=== PATIENT | male | born 1985 ===

== ENCOUNTER 2017-06-03 22:22 | Emergency (ER) | payer MEDICARE, MEDICAID ==
[2017-06-03 22:22] VITALS: BMI 27.6
[2017-06-03 22:43] VITALS: TEMP 98; O2SAT 97
[2017-06-03 23:59] LABS: BASO # 0.1 K/uL (0.0-0.2); BASO % 0.7 % (0.0-2.0); EOS # 0.2 K/uL (0.0-0.7); EOS % 2.2 % (0.0-4.0); HEMOGLOBIN 14.6 g/dL (12.0-18.0); LYMPH # 3.4 K/uL (1.0-4.3); LYMPH % 43.5 % (20.0-40.0); MEAN CELL VOLUME 86.2 fL (80.0-94.0); MEAN CORPUSCULAR HEMOGLOBIN 30.8 pg (27.0-31.0); MEAN CORPUSCULAR HGB CONC 35.7 g/dL (33.0-37.0); MEAN PLATELET VOLUME 8.8 fL (7.2-11.7); MONO # 0.5 K/uL (0.0-0.8); MONO % 6.9 % (0.0-10.0); NEUT # 3.7 K/uL (1.8-7.0); NEUT % 46.7 % (50.0-75.0); RBC 4.74 Mil/uL (4.40-5.90); RED CELL DISTRIBUTION WIDTH 13.6 % (11.5-14.5); WHITE BLOOD COUNT 7.8 K/uL (4.8-10.8)
[2017-06-04 00:14] LABS: ALB/GLOB RATIO 1.2 (1.0-2.1); ALT/SGPT 34 U/L (21-72); AST/SGOT 27 U/L (17-59); BLOOD UREA NITROGEN 16 mg/dL (9-20); CALCIUM 8.9 mg/dl (8.6-10.4); GFR AFRICAN-AMERICAN > 60; GFR NON-AFRICAN AMERICAN > 60
--- NOTE | 2017-06-04 00:31 | C.PDOC ---
History Of Present Illness 31 years old male presents to ED with complaints of chest pain that began after reaching for something earlier today. Denies SOB, cough, fever, or cardiac Hx. Patient states pain increases with movement. Chief Complaint (Nursing): Chest Pain History Per: Patient History/Exam Limitations: no limitations Onset/Duration Of Symptoms: Hrs Current Symptoms Are (Timing): Still Present Quality: "Pain" Associated Symptoms: denies: Nausea, Dyspnea Modifying Factors: None Exacerbating Factors: Movement Alleviating Factors: None Recent travel outside of the [place]: No Past Medical History Reviewed: Historical Data, Nursing Documentation, Vital Signs Vital Signs: Last Vital Signs Temp 98 F 06/03/17 22:37 Pulse 77 06/04/17 00:46 Resp 16 06/04/17 00:46 BP 113/76 06/04/17 00:46 Pulse Ox 97 06/04/17 00:46 - Medical History PMH: No Chronic Diseases Surgical History: No Surg Hx Family History: States: Unknown Family Hx - Social History Hx Tobacco Use: No Hx Alcohol Use: Yes Hx Substance Use: No (Cocaine) - Immunization History Hx Tetanus Toxoid Vaccination: No Hx Influenza Vaccination: No Hx Pneumococcal Vaccination: No Review Of Systems Constitutional: Negative for: Fever, Chills Cardiovascular: Positive for: Chest Pain. Negative for: Palpitations Respiratory: Negative for: Cough, Shortness of Breath Gastrointestinal: Negative for: Nausea, Vomiting, Abdominal Pain, Diarrhea Skin: Negative for: Rash Neurological: Negative for: Weakness, Numbness Physical Exam - Physical Exam Appears: Well, Non-toxic, No Acute Distress Skin: Normal Color, Warm, Dry Head: Atraumatic, Normacephalic Eye(s): bilateral: Normal Inspection Oral Mucosa: Moist Neck: Supple Chest: Symmetrical, No Tenderness Cardiovascular: Rhythm Regular, No Murmur Respiratory: Normal Breath Sounds, No Decreased Breath Sounds, No Rales, No Rhonchi, No Wheezing Gastrointestinal/Abdominal: Soft, No Tenderness, No Distention Extremity: Normal ROM, No Tenderness, No Pedal Edema, No Deformity, No Swelling Extremity: Bilateral: Normal Color And Temperature, Normal ROM Neurological/Psych: Oriented x3, Normal Speech, Normal Cognition, Other (no focal deficits) ED Course And Treatment - Laboratory Results Result Diagrams: 06/03/17 23:51 06/03/17 23:51 O2 Sat by Pulse Oximetry: 97 (RA) Pulse Ox Interpretation: Normal Medical Decision Making Medical Decision Making: Ordered EKG, CXR and blood work. EKG Results: - Normal sinus rhythm at 71 bpm. Disposition - Disposition Referrals: Ariadna Khanna, [Non-Staff] - Disposition: HOME/ ROUTINE Disposition Time: 00:50 Condition: GOOD Additional Instructions: Thank you for letting us take care of you today. The emergency medical care you received today was directed at your acute symptoms. If you were prescribed any medication, please fill it and take as directed. It may take several days for your symptoms to resolve. Return to the Emergency Department if your symptoms worsen, do not improve, or if you have any other problems. Please contact your doctor or call one of the physicians/clinics you have been referred to that are listed on the Patient Visit Information form that is included in your discharge packet. Bring any paperwork you were given at discharge with you along with any medications you are taking to your follow up visit. Our treatment cannot replace ongoing medical care by a primary care provider (PCP) outside of the emergency department. Thank you for allowing the [facility] team to be part of your care today. Follow up with your doctor for re-evaluation and further management. Prescriptions: Ibuprofen [Motrin] 600 mg PO Q6 PRN #20 tab PRN Reason: Pain, Moderate (4-7) Instructions: Chest Pain That Is Not Caused by the Heart (DC) Forms: [employer] (Tajik) - Clinical Impression Clinical Impression: Non-cardiac chest pain - Scribe Statement The provider has reviewed the documentation as recorded by the Scribsharee Gold All medical record entries made by the Scribe were at my direction and personally dictated by me. I have reviewed the chart and agree that the record accurately reflects my personal performance of the history, physical exam, medical decision making, and the department course for this patient. I have also personally directed, reviewed, and agree with the discharge instructions and disposition.
[2017-06-04 00:47] VITALS: BP 113/76; PULSE 77; RESP 16
--- NOTE | 2017-06-04 11:37 | RAD ---
PROCEDURE: CHEST RADIOGRAPH, 1 VIEW HISTORY: chest pain COMPARISON: Comparison is made to 12/12/2015 FINDINGS: LUNGS: No evidence of new infiltrate or consolidation in the lungs. PLEURA: No pneumothorax or pleural fluid seen. CARDIOVASCULAR: Normal. OSSEOUS STRUCTURES: No significant abnormalities. VISUALIZED UPPER ABDOMEN: Normal. OTHER FINDINGS: None. IMPRESSION: No active disease.
--- NOTE | 2017-06-06 20:35 | CARD ---
APPROVED REPORT EKG Measurement Heart [id number] <Conclusion> Normal sinus rhythm with sinus arrhythmia Normal ECG
== END 2017-06-04 01:05 | disposition home or self-care (01) ==
LOC: C.ER 22:22
DX: R07.89 Other chest pain (principal)

== ENCOUNTER 2017-10-13 11:49 | Emergency (ER) | payer MEDICARE, MEDICAID ==
[2017-10-13 12:03] VITALS: BMI 26.4
[2017-10-13 12:05] VITALS: RESP 16
[2017-10-13] MEDS ORDERED: Sodium Chloride 0.9% 1,000 ML IV ONE (12:09)
--- NOTE | 2017-10-13 12:25 | RAD ---
HISTORY: chest pain COMPARISON: Chest x-ray performed 06/03/17 TECHNIQUE: Chest, one view. FINDINGS: LUNGS: No focal consolidation. Please note that chest x-ray has limited sensitivity for the detection of pulmonary masses. PLEURA: No significant pleural effusion identified. No definite pneumothorax . CARDIOVASCULAR: The cardiomediastinal silhouette appears within normal limits of size. OSSEOUS STRUCTURES: No acute osseous abnormality identified. VISUALIZED UPPER ABDOMEN: Unremarkable. OTHER FINDINGS: None. IMPRESSION: No focal consolidation, significant pleural effusion, or definite pneumothorax identified.
[2017-10-13 12:42] LABS: BASO % 0.7 % (0.0-2.0); EOS # 0.1 K/uL (0.0-0.7); EOS % 1.5 % (0.0-4.0); HEMOGLOBIN 15.2 g/dL (12.0-18.0); LYMPH # 2.2 K/uL (1.0-4.3); LYMPH % 36.7 % (20.0-40.0); MEAN CELL VOLUME 86.1 fL (80.0-94.0); MEAN CORPUSCULAR HEMOGLOBIN 30.4 pg (27.0-31.0); MEAN CORPUSCULAR HGB CONC 35.3 g/dL (33.0-37.0); MEAN PLATELET VOLUME 8.7 fL (7.2-11.7); MONO # 0.4 K/uL (0.0-0.8); MONO % 7.4 % (0.0-10.0); NEUT # 3.2 K/uL (1.8-7.0); NEUT % 53.7 % (50.0-75.0); RBC 5.02 Mil/uL (4.40-5.90); RED CELL DISTRIBUTION WIDTH 13.5 % (11.5-14.5); WHITE BLOOD COUNT 5.9 K/uL (4.8-10.8)
[2017-10-13 13:01] LABS: ALB/GLOB RATIO 1.4 (1.0-2.1); ALBUMIN 4.5 g/dL (3.5-5.0); ALT/SGPT 39 U/L (21-72); AST/SGOT 25 U/L (17-59); BLOOD UREA NITROGEN 14 mg/dL (9-20); CALCIUM 9.3 mg/dl (8.6-10.4); GFR NON-AFRICAN AMERICAN > 60
[2017-10-13] MEDS ORDERED: Sodium Chloride 0.9% 1,000 ML ONE (13:09)
[2017-10-13 13:12] LABS: BARBITURATES, UR NEGATIVE (NEGATIVE); BENZODIAZEPINES, UR NEGATIVE (NEGATIVE); OPIATES, UR NEGATIVE (NEGATIVE); PHENCYCLIDINE, UR NEGATIVE (NEGATIVE)
[2017-10-13 13:41] VITALS: BP 115/80; PULSE 85; TEMP 98.7; O2SAT 98
--- NOTE | 2017-10-13 14:40 | C.PDOC ---
History Of Present Illness 32 y/o male presents to the ED complaining of epigastric pain for several days. He reports the pain worsens with PO intake. The patient admits to experiencing this pain in the past but never sought out evaluation. He denies any SOB, fever or cough. Time Seen by Provider: 10/13/17 12:06 Chief Complaint (Nursing): Chest Pain History Per: Patient History/Exam Limitations: no limitations Onset/Duration Of Symptoms: Days Current Symptoms Are (Timing): Still Present Exacerbating Factors: Other (PO intake) Recent travel outside of the [place]: No Past Medical History Reviewed: Historical Data, Nursing Documentation, Vital Signs Vital Signs: Last Vital Signs Temp 98.7 F 10/13/17 13:40 Pulse 85 10/13/17 13:40 Resp 16 10/13/17 13:41 BP 115/80 10/13/17 13:40 Pulse Ox 98 10/13/17 15:25 - Medical History PMH: Denies: HIV, HTN, Seizures, Sexually Transmitted Disease Other Surgeries: Left eye surgery Family History: States: Unknown Family Hx - Social History Hx Tobacco Use: No Hx Alcohol Use: No Hx Substance Use: No (Cocaine) - Immunization History Hx Tetanus Toxoid Vaccination: No Hx Influenza Vaccination: No Hx Pneumococcal Vaccination: No Review Of Systems Except As Marked, All Systems Reviewed And Found Negative. Constitutional: Negative for: Fever Cardiovascular: Negative for: Chest Pain Respiratory: Negative for: Cough, Shortness of Breath Gastrointestinal: Positive for: Other (epigastric pain). Negative for: Nausea, Vomiting, Diarrhea Physical Exam - Physical Exam Appears: Well, Non-toxic, No Acute Distress Skin: Normal Color, Warm, No Rash Head: Atraumatic, Normacephalic Eye(s): bilateral: PERRL, EOMI Ear(s): Bilateral: Normal Oral Mucosa: Moist Neck: Normal ROM, Supple Chest: Symmetrical Cardiovascular: Rhythm Regular, No Murmur Respiratory: Normal Breath Sounds, No Rales, No Rhonchi, No Wheezing Gastrointestinal/Abdominal: Soft, No Tenderness, No Distention Extremity: Normal ROM Extremity: Bilateral: Normal Color And Temperature, Normal ROM Neurological/Psych: Oriented x3, Normal Speech Gait: Steady ED Course And Treatment - Laboratory Results Result Diagrams: 10/13/17 12:38 10/13/17 12:38 O2 Sat by Pulse Oximetry: 98 (RA) Pulse Ox Interpretation: Normal - Other Rad Chest X-Ray: Viewed By Me, Read By Radiologist Interpretation: FINDINGS: LUNGS: No focal consolidation. Please note that chest x-ray has limited sensitivity for the detection of pulmonary masses. PLEURA: No significant pleural effusion identified. No definite pneumothorax . CARDIOVASCULAR: The cardiomediastinal silhouette appears within normal limits of size. OSSEOUS STRUCTURES: No acute osseous abnormality identified. VISUALIZED UPPER ABDOMEN: Unremarkable. OTHER FINDINGS: None. IMPRESSION: No focal consolidation, significant pleural effusion, or definite pneumothorax identified. Medical Decision Making Medical Decision Making: Impression: 32 y/o male with epigastric pain Plan: -EKG -CMP -Drug Screen -Troponin I -CBC -D Dimer -Chest X-Ray -Pepcid 20 mg IV -Zofran Inj 40 mg IV -IV Fluids Disposition - Disposition Referrals: [facility] [Outside] [facility] [Outside] Disposition: HOME/ ROUTINE Disposition Time: 13:45 Condition: GOOD Additional Instructions: ANDRES TAI, thank you for letting us take care of you today. The emergency medical care you received today was directed at your acute symptoms. If you were prescribed any medication, please fill it and take as directed. It may take several days for your symptoms to resolve. Return to the Emergency Department if your symptoms worsen, do not improve, or if you have any other problems. Please contact your doctor or call one of the physicians/clinics you have been referred to that are listed on the Patient Visit Information form that is included in your discharge packet. Bring any paperwork you were given at discharge with you along with any medications you are taking to your follow up visit. Our treatment cannot replace ongoing medical care by a primary care provider outside of the emergency department. Thank you for allowing the [facility] team to be part of your care today. Follow up with your doctor or our clinic in 3-5 days for re-evaluation and further management. Prescriptions: Ranitidine HCl [Zantac] 150 mg PO BID #20 tablet Instructions: Gastritis Forms: [employer] (Bulgarian) - Clinical Impression Clinical Impression: Epigastric abdominal pain - PA / [employer]IVER / Resident Statement MD/DO has reviewed & agrees with the documentation as recorded. - Scribe Statement The provider has reviewed the documentation as recorded by the Scribe (Valorie Mccarty) Provider Attestation: All medical record entries made by the Scribe were at my direction and personally dictated by me. I have reviewed the chart and agree that the record accurately reflects my personal performance of the history, physical exam, medical decision making, and the department course for this patient. I have also personally directed, reviewed, and agree with the discharge instructions and disposition.
--- NOTE | 2017-10-13 18:59 | CARD ---
APPROVED REPORT Date of service: 10/13/2017 EKG Measurement Heart [id number] <Conclusion> Normal sinus rhythm Normal ECG
== END 2017-10-13 13:41 | disposition home or self-care (01) ==
LOC: C.ER 11:49
DX: R10.13 Epigastric pain (principal)
CPT/HCPCS: 71045; 80053; 84484; 85025; 85378; 93005; 96374; 96375; 99284; G0480; J2405; J7030

== ENCOUNTER 2018-04-18 06:12 | Day surgery (SDC) | payer MEDICARE, MEDICAID ==
[2018-03-30 09:33] VITALS: BMI 27.8
[2018-04-18] MEDS ORDERED: Lidocaine/Epinephrine 1% 1:100000 10 ML IJ ONE ×2 (07:05→07:06)
[2018-04-18] MEDS ORDERED: EPINEPHrine 1:1000 Nasal Sol(30mL) ONE (07:05)
[2018-04-18] MEDS ORDERED: ceFAZolin 1 gm in NS 2 GM/200 ML BAG IVPB ONE (07:06)
[2018-04-18 07:41] VITALS: PULSE 76; RESP 18; TEMP 97.6; O2SAT 98
[2018-04-18] MEDS ORDERED: Acetaminophen-Codeine 300/30 mg Tab PO PRN (08:35)
[2018-04-18] MEDS ORDERED: Dextrose 5%/0.45% NS 1,000 ML IV SCH (08:45)
[2018-04-18] MEDS ORDERED: Midazolam 2 MG/2 ML VIAL ONE (09:12)
[2018-04-18] MEDS ORDERED: Propofol 10 mg/ml Inj (20 ML) ONE (09:12)
[2018-04-18] MEDS ORDERED: Neostigmine 1:1000 (1 mg/ml) Inj ONE (10:38)
[2018-04-18] MEDS: HYDROmorphone 0.5 mg/0.5 ml ISec IVP PRN ×3 (11:02→11:34)
[2018-04-18 14:22] VITALS: BP 125/76
--- NOTE | 2018-04-24 06:29 | OP ---
PROCEDURE DATE: 04/18/2018 PRE-PROCEDURE DIAGNOSIS: Nasal polyps, sinusitis and large inferior turbinates. POSTPROCEDURE DIAGNOSIS: Nasal polyps, sinusitis and large inferior turbinates. PROCEDURE: Endoscopic bilateral maxillary antrostomy, endoscopic bilateral ethmoidectomy, endoscopic bilateral sphenoidotomy, endoscopic bilateral frontal sinusotomy, and endoscopic bilateral inferior turbinate reduction. SIGNIFICANT FINDINGS: Negative polyposis, polyps noted in the ethmoid sinuses on both sides, maxillary antrum stenosed on both sides, sphenoid antrum stenosed on both sides. Maxillary antrum stenosed on both sides, frontal recess stenosed on both sides, enlarged inferior turbinates. DESCRIPTION OF PROCEDURE: The patient was brought into room, placed in supine position, anesthesia initiated through an ET tube. The patient was draped in the usual manner. Adrenaline-soaked pledgets were inserted into nasal cavity, remained there for 5 minutes and removed. Navigation was set and used throughout the case in order to ensure the orbit and skull base were not entered. After navigation was set up, a zero-degree scope was inserted into the nasal cavity. The inferior turbinates were noted to be enlarged and reduced in size using scissors going from inferior to superior and anterior to posterior direction on both sides, first on the left than on the right. Bleeding was controlled using suction cautery on both sides. Next, polyps were noted emanating from the middle meatus on both sides. was injected with lidocaine with epinephrine on both sides. Attention was turned to the left. Polyps emanating from the meatus were reduced in size using a debrider. The middle turbinate was injected with lidocaine with epinephrine and medialized. A debrider was used to enter the ethmoid bulla inferomedially going posterior to the basal lamella, then anterior and superiorly until the ethmoid bulla was removed. The basal lamella was entered. Posterior ethmoid cells were entered and opened. Skull base was identified and followed anteriorly all the way to the area of anterior ethmoid air cells. The frontal recess was noted to be stenosed and opened using forceps. The sphenoid antrum was noted to be stenosed and opened using forceps. Maxillary antrum was noted to be stenosed located using curved suction and opened using forceps. Attention was turned to the other side. The polyps emanating from the middle meatus were removed using a debrider. The middle turbinate was injected with lidocaine with epinephrine and medialized. The ethmoid bulla was entered inferomedially going posteriorly to the basal lamella and anterior and superiorly until the ethmoid bulla was removed. The basal lamella was entered. Posterior ethmoid cells were entered and opened. Skull base was identified and followed anteriorly all this to the area of anterior ethmoid air cells. The frontal recess was noted to be stenosed and opened using forceps. The sphenoid antrum was noted to be stenosed and opened using forceps. A curved suction maxillary antrum which was noted to be stenosed and opened using forceps. Bleeding was controlled on both sides using suction cautery and FloSeal. The patient was taken off anesthesia and taken to recovery room in stable manner. Fletcher Durant MD
== END 2018-04-18 15:40 | disposition home or self-care (01) ==
LOC: C.SDS 06:12
PROVIDERS: ATTEND Otolaryngology
DX: J34.3 Hypertrophy of nasal turbinates (principal); J32.0 Chronic maxillary sinusitis; J32.1 Chronic frontal sinusitis; J32.2 Chronic ethmoidal sinusitis; J32.3 Chronic sphenoidal sinusitis; J33.9 Nasal polyp, unspecified
CPT/HCPCS: 30130; 31020; 31050; 31201; 31276; 61781; 88304; C2615; J0690; J1170; J2250; J2405; J2704; J2710; J3010

== ENCOUNTER 2018-04-19 15:15 | Emergency (ER) | payer MEDICARE, MEDICAID ==
[2018-04-19 15:15] VITALS: BMI 27.8
[2018-04-19 15:31] VITALS: PULSE 77; TEMP 98.4
[2018-04-19] MEDS ORDERED: Oxymetazoline 0.05% Nasal Spray (30 ml) NS STA (15:34)
[2018-04-19 16:22] VITALS: BP 121/74; RESP 20; O2SAT 97
--- NOTE | 2018-04-19 19:19 | C.PDOC ---
History Of Present Illness 32 y/o male presents to the ED for evaluation of epistaxis since yesterday. Patient states he had nasal polyps removed yesterday with Dr. Durant. Reports taking his antibiotic as prescribed. Since yesterday, patient reports the area has continued bleeding so today he called the office, who referred him to the ED. Otherwise he denies any headaches, lightheadedness, dizziness, palpitations, visual changes, chest pain, or SOB. Time Seen by Provider: 04/19/18 15:24 Chief Complaint (Nursing): ENT Problem History Per: Patient History/Exam Limitations: no limitations Onset/Duration Of Symptoms: Days (1) Current Symptoms Are (Timing): Still Present Location Of Bleeding: Both Nares Symptoms Have Been: Continuous Associated Symptoms: denies: Syncope, Lightheadedness Recent Aspirin Use: No Past Medical History Reviewed: Historical Data, Nursing Documentation, Vital Signs Vital Signs: Last Vital Signs Temp 98.4 F 04/19/18 15:28 Pulse 77 04/19/18 16:21 Resp 20 04/19/18 16:21 BP 121/74 04/19/18 16:21 Pulse Ox 97 04/19/18 16:21 - Medical History PMH: No Chronic Diseases Denies: Chronic Kidney Disease Other PMH: Sinusitis Other Surgeries: Nasal polyp removal 04/18/18 Family History: States: Unknown Family Hx - Social History Hx Tobacco Use: No Hx Alcohol Use: Yes Hx Substance Use: No - Immunization History Hx Tetanus Toxoid Vaccination: No Hx Influenza Vaccination: No Hx Pneumococcal Vaccination: No Review Of Systems Except As Marked, All Systems Reviewed And Found Negative. Constitutional: Negative for: Fever, Chills Eyes: Negative for: Vision Change ENT: Positive for: Other (Epistaxis) Cardiovascular: Negative for: Chest Pain, Palpitations, Light Headedness Respiratory: Negative for: Shortness of Breath Gastrointestinal: Negative for: Nausea, Vomiting Genitourinary: Negative for: Dysuria, Frequency Musculoskeletal: Negative for: Neck Pain, Back Pain Skin: Negative for: Rash Neurological: Negative for: Weakness, Numbness, Headache, Dizziness Physical Exam - Physical Exam Appears: Well, Non-toxic, No Acute Distress Skin: Normal Color, Warm, No Pale Head: Atraumatic, Normacephalic Eye(s): bilateral: Normal Inspection, PERRL, EOMI Nose: Epistaxis (Small amount of active bleeding from the bilateral nares, left > right), No Septal Hematoma Oral Mucosa: Moist Throat: Normal Neck: Normal ROM, Supple Chest: Symmetrical Cardiovascular: Rhythm Regular, No Murmur Respiratory: Normal Breath Sounds, No Accessory Muscle Use Extremity: Normal ROM, Capillary Refill (<2s) Extremity: Bilateral: Atraumatic, Normal Color And Temperature Pulses: Left Radial: Normal, Right Radial: Normal Neurological/Psych: Oriented x3, Normal Speech, Normal Motor, Normal Sensation Gait: Steady ED Course And Treatment O2 Sat by Pulse Oximetry: 97 (RA) Pulse Ox Interpretation: Normal Medical Decision Making Medical Decision Making: Impression: Epistaxis, s/p nasal surgery Spoke with Dr. Durant, who states he will come to see patient in the ED. Patient given afrin spray. 15:55 Dr. Durant at bedside, evaluating patient in the ED. Hemostasis achieved s/p afrin. Patient cleared for discharge home, advised to follow up with Bhargav in the office as scheduled. Diagnostic testing results and plan of care discussed with patient. Strict instructions given regarding prescription use, importance of followup, and signs/symptoms to return to ER including pain, worsening bleeding, dizziness, syncope, palpitations, or any other new/worsening symptoms. Pt verbalized understanding of discussion. Patient is A&Ox3, ambulating with steady gait, with vital signs stable for discharge. Disposition - Disposition Referrals: Fletcher Durant MD [Staff Provider] - Disposition: HOME/ ROUTINE Disposition Time: 16:15 Condition: IMPROVED Additional Instructions: Use Afrin if bleeding returns, 2 spray per nostril every 12 hours Followup with ENT as instructed Followup with primary doctor within 2 days Return to ER with any new/worsening symptoms Instructions: Oxymetazoline (Nasal), Nosebleeds (DC) Forms: [employer] (Sri Lankan) - Clinical Impression Clinical Impression: Epistaxis - PA / ELECTRICAL AND [employer]IO MECH[employer]IC / Resident Statement MD/DO has reviewed & agrees with the documentation as recorded. - Scribe Statement The provider has reviewed the documentation as recorded by the Guerrero Bhatt All medical record entries made by the Fabioibsharee were at my direction and personally dictated by me. I have reviewed the chart and agree that the record accurately reflects my personal performance of the history, physical exam, medical decision making, and the department course for this patient. I have also personally directed, reviewed, and agree with the discharge instructions and disposition.
== END 2018-04-19 16:38 | disposition home or self-care (01) ==
LOC: C.ER 15:15
DX: R04.0 Epistaxis (principal)